=== PATIENT | male | born 1950 | race Caucasian/White ===

== ENCOUNTER 2023-04-15 17:40 | Inpatient (IN) | payer MEDICARE ==
[~2023-04-15] VITALS: Ht 170.2 cm; Wt 49.9 kg
--- NOTE | 2023-04-15 18:19 | NUR ---
PT IDS IN ROOM #1B. DR OLIVAREZ EVALUATED THE PT.
[2023-04-15] MEDS ORDERED: ONDANSETRON 4 MG/2 ML VIAL IV ONE (19:00)
[2023-04-15] MEDS ORDERED: HYDROMORPHONE 1 MG/1 ML DISP.SYRIN IV ONE (19:00)
[2023-04-15 19:22] LABS: HEMATOCRIT 31.8 % (36.7-47.1); MEAN CORPUSCULAR HEMOGLOBIN 28.9 uug (23.8-33.4); MEAN CORPUSCULAR VOLUME 89.5 fL (73.0-96.2); PLATELET COUNT (AUTO) 298 K/uL (152-348)
--- NOTE | 2023-04-15 19:30 | NUR ---
While performing perineal care, noted patient had nonblanchable erythema to sacrum, blister to right ankle and a scabb to right elbow.
[2023-04-15 19:35] LABS: ALANINE AMINOTRANSFERASE 11 U/L (16-63); ALKALINE PHOSPHATASE 60 U/L (50-136); ASPARTATE AMINOTRANSFERASE 7 U/L (15-37); BILIRUBIN,DIRECT 0.1 mg/dL (0.0-0.2); BILIRUBIN,TOTAL 0.4 mg/dL (0.2-1.0); CARBON DIOXIDE 24 mmol/L (21-32); CHLORIDE 94 mmol/L (98-107); CREATININE 1.6 mg/dL (0.6-1.3); POTASSIUM 4.2 mmol/L (3.5-5.1); TOTAL PROTEIN, SERUM 7.5 g/dL (6.4-8.2); UREA NITROGEN, BLOOD 31 mg/dL (7-18)
[2023-04-15 19:37] LABS: GLUCOSE 737 mg/dL (74-106)
[2023-04-15] MEDS ORDERED: IV NS 1000 ML 1,000 ML IV ONE ×2 (19:45)
[2023-04-15] MEDS ORDERED: ONDANSETRON 4 MG/2 ML VIAL ONE (21:02)
[2023-04-15] MEDS ORDERED: HYDROMORPHONE 1 MG/1 ML DISP.SYRIN ONE (21:03)
--- NOTE | 2023-04-15 21:16 | NUR ---
Called Dr. Preston for ortho panel call. Waiting for call back.
[2023-04-15 21:26] LABS: *BILIRUBIN,URIN NEGATIVE (NEGATIVE); *BLOOD, URINE NEGATIVE (NEGATIVE); *CLARITY,URINE CLEAR (CLEAR); *COLOR,URINE YELLOW (YELLOW); *KETONES,URINE NEGATIVE (NEGATIVE); *UROBILINOGEN,URINE 0.2 E.U./dl (NORMAL); LEUKOCYTE ESTERASE ,URINE NEGATIVE (NEGATIVE); NITRITE, URINE NEGATIVE (NEGATIVE); PH,URINE 5.5 (5.0-8.0)
[2023-04-15 21:34] LABS: RBC,URINE 0-3 /HPF (0-3); UGLUCOSE 2+ (NEGATIVE); WBC,URINE 0-3 /HPF (0-3)
[2023-04-15] MEDS ORDERED: ONDANSETRON 4 MG/2 ML VIAL IV PRN (23:30)
[2023-04-15] MEDS ORDERED: INSULIN REGULAR, HUMAN 300 UNIT/3 ML VIAL SQ PRN (23:30)
[2023-04-15] MEDS ORDERED: DEXTROSE 50% 50 ML DISP.SYRIN IV PRN (23:30)
[2023-04-15] MEDS ORDERED: MORPHINE SULFATE 2 MG/1 ML DISP.SYRIN IV PRN (23:30)
[2023-04-15] MEDS: BLOOD SUGAR DIAGNOSTIC 1 EACH STRIP VI SCH (23:40)
[2023-04-15] MEDS ORDERED: INSULIN LISPRO 300 UNIT/3 ML VIAL SQ ONE (23:54)
[2023-04-16] VITALS (8 sets, daily range): BP systolic 113–150; BP diastolic 60–74
[2023-04-16] MEDS: BLOOD SUGAR DIAGNOSTIC 1 EACH STRIP VI SCH ×5 (00:15→20:49)
--- NOTE | 2023-04-16 00:21 | NUR ---
10units of Hummulin R given per slidding scale for finger stick accucheck of 373
--- NOTE | 2023-04-16 01:30 | NUR ---
Patient resting comfortably in bed, eyes closed, no signs of distress noted.
[2023-04-16] MEDS ORDERED: MORPHINE SULFATE 2 MG/1 ML DISP.SYRIN IV PRN (06:07)
[2023-04-16 07:38] LABS: HEMATOCRIT 27.6 % (36.7-47.1); MEAN CORPUSCULAR HEMOGLOBIN 29.6 uug (23.8-33.4); PLATELET COUNT (AUTO) 265 K/uL (152-348)
--- NOTE | 2023-04-16 08:00 | NUR ---
BEDSIDE REPORT RECEIVED FROM ELISE. WITH HER ASSISTANCE PT CLOTHES REMOVED BY ANDREA RN FOR SKIN ASSESSMENT PT FOUNF TO HAVE REDDED BUTTUCK BUT BLANACHABLE AND BILATERAL HEEL CALLUS RED BUT BLANCABLE PT S/P FALL WITH RT HIP FRACTUTE. CARDIO AT BEDSIDE INFORMING THE PT OF POSSIBLE SURGERY. PT STSTES HIS LEFT EYE WITH INFECTION. EYE NOT RED PUPILS REACTIVE PT ASKED FOR THE EYE TO BE COVERED. WILL ASSESS
--- NOTE | 2023-04-16 08:07 | NUR ---
Report given to Keely OCONNOR
[2023-04-16 08:14] LABS: THYROID STIMULATING HORMONE 0.797 mIU/mL (0.358-3.740)
[2023-04-16 08:37] LABS: ALANINE AMINOTRANSFERASE 10 U/L (16-63); ALKALINE PHOSPHATASE 49 U/L (50-136); ASPARTATE AMINOTRANSFERASE < 5 U/L (15-37); BILIRUBIN,TOTAL 0.3 mg/dL (0.2-1.0); CARBON DIOXIDE 29 mmol/L (21-32); CHLORIDE 104 mmol/L (98-107); CREATININE 0.9 mg/dL (0.6-1.3); GLUCOSE 138 mg/dL (74-106); PHOSPHOROUS 3.7 mg/dL (2.5-4.9); POTASSIUM 3.8 mmol/L (3.5-5.1); TOTAL PROTEIN, SERUM 6.5 g/dL (6.4-8.2); UREA NITROGEN, BLOOD 23 mg/dL (7-18)
--- NOTE | 2023-04-16 08:49 | NUR ---
Nursing SBAR given to agricultural real estate agent Portia. All questions answered. Patient moved from ER room 1B to ER room 2B per ER unemployment insurance hearing officer Grace.
--- NOTE | 2023-04-16 09:00 | NUR ---
PIN DRAFTING MACHINE OPERATOR AT THR BEDSIDE MD INFORMED OF PTS TROPIN ALERT OF 118. AWAITING MD FOR FURTHER IMPLEMENTATIONS
--- NOTE | 2023-04-16 09:01 | NUR ---
Patient was help to hospital gown with primary RN Mary. Dr Mendoza at bedside.
[2023-04-16 09:16] LABS: MAGNESIUM 1.6 mg/dL (1.8-2.4)
[2023-04-16 10:06] LABS: CHOLESTEROL 159 mg/dL (<200); HDL CHOLESTEROL 46 mg/dL (40-60); TRIGLYCERIDES 49 MG/DL (30-150)
[2023-04-16] MEDS ORDERED: PANTOPRAZOLE SODIUM 40 MG VIAL ONE (10:35)
[2023-04-16] MEDS: PANTOPRAZOLE SODIUM 40 MG VIAL IV SCH (10:36)
--- NOTE | 2023-04-16 10:48 | NUR ---
DR THOMPSON AT BEDSIDE EXPLAINING SURGERY PROCEDURE TO THE PT . PT SCEDULED FOR TOMORROW AT ONE MD GAVE ORDER FOR THE PT TO EAT DIET PLACED. CONSENT FOR BIPOLAR REPLACEMENT RIGHT HIP SIGNED AND BLOOD CONSENT SIGNED
--- NOTE | 2023-04-16 14:30 | NUR ---
report called to the rn of 306 verbal understanding noted
--- NOTE | 2023-04-16 15:50 | NUR ---
ADMITTED FROM [facility] ER S/P FALL 2 WEEKS AGO WITH ADMITTING DX OF RIGHT HIP FX, HYPERGLYCEMIA, AWAKE ALERT AND ANSWER QUESTIONS APPROPRIATELY, NO SIGNS OF DISTRESS OR ACUTE PAIN. ROUTINE ADMISSION ASSESSMENT INITIATED LATEST BS 311 WITH SS MILD. STARTED ON NS IVF AT 80 MLS/HR, MG IV FOR LOW MAGNESIUM 1.6
[2023-04-16] MEDS ORDERED: DEXTROSE 50% 50 ML DISP.SYRIN IV PRN (17:00)
[2023-04-16] MEDS: IV NS 1000 ML 1,000 ML IV PRN (17:16)
[2023-04-16] MEDS: INSULIN REGULAR, HUMAN 300 UNIT/3 ML VIAL SQ PRN ×2 (17:22→20:52)
[2023-04-16] MEDS: MAGNESIUM SULFATE/D5W 100 ML IV SCH ×2 (17:23→18:03)
--- NOTE | 2023-04-16 17:39 | NUR ---
PATIENT SCHEDULED FOR SURGERY IN AM
[2023-04-16] MEDS ORDERED: MAGNESIUM SULFATE/D5W 100 ML IV SCH (20:30)
[2023-04-16] MEDS ORDERED: NICOTINE POLACRILEX 4 MG GUM-PK OF TEN BC PRN (23:00)
[2023-04-17 00:07] VITALS: BP 138/64
[2023-04-17] MEDS ORDERED: DEXTROSE 50% 50 ML DISP.SYRIN IV PRN ×2 (00:15→18:30)
[2023-04-17 05:00] VITALS: BP 147/65
[2023-04-17] MEDS: BLOOD SUGAR DIAGNOSTIC 1 EACH STRIP VI SCH ×4 (05:32→21:13)
[2023-04-17] MEDS ORDERED: NICOTINE POLACRILEX 4 MG GUM-PK OF TEN BC PRN (06:00)
--- NOTE | 2023-04-17 06:41 | NUR ---
END OF SHIFT REPORT Patient rested well in between care; episode of 11 beats NSVT. referred to EYEGLASS FRAME TRUER EMELY, ordered Mg IV and administered; pain management with morphine this AM; kept NPO fr MN; continue to monitor; continue plan of care.
[2023-04-17 07:01] LABS: HEMATOCRIT 28.3 % (36.7-47.1); MEAN CORPUSCULAR HEMOGLOBIN 29.3 uug (23.8-33.4); MEAN CORPUSCULAR VOLUME 85.4 fL (73.0-96.2); PLATELET COUNT (AUTO) 287 K/uL (152-348)
[2023-04-17 07:26] LABS: CARBON DIOXIDE 28 mmol/L (21-32); CHLORIDE 102 mmol/L (98-107); CREATININE 0.8 mg/dL (0.6-1.3); GLUCOSE 229 mg/dL (74-106); MAGNESIUM 2.1 mg/dL (1.8-2.4); PHOSPHOROUS 3.2 mg/dL (2.5-4.9); POTASSIUM 4.2 mmol/L (3.5-5.1); UREA NITROGEN, BLOOD 20 mg/dL (7-18)
[2023-04-17] MEDS: IV NS 1000 ML 1,000 ML IV PRN (07:52)
--- NOTE | 2023-04-17 08:00 | NUR ---
AWAKE ALERT AND ORIENTED X3 PLEASANT AND COOPERATIVE. DISCUSSED PLAN OF CARE, PATIENT IS VERY AWARE OF DX AND SURGERY SCHEDULE AT 1PM. NOTED C/O BEARABLE PAIN 2/10 RIGHT LEG CONTINUE PAIN MGT ORDERED.
[2023-04-17] MEDS: PANTOPRAZOLE SODIUM 40 MG VIAL IV SCH (08:21)
[2023-04-17] MEDS: METOPROLOL TARTRATE 25 MG TABLET PO SCH ×2 (08:23→21:05)
--- NOTE | 2023-04-17 11:11 | NUR ---
TEXT DR. PARISH FOR MRI APPROVAL.
--- NOTE | 2023-04-17 11:37 | NUR ---
WOUND CARE CONSULT: PT PRESENTS WITH SACRAL DEEP TISSUE IN EVOLUTION AND LEFT HEEL LARGE RAISED BLISTER, PRESENT ON ADMISSION. DIFFICULT ASSESSMENT DUE TO PT DISCOMFORT. DR ROSARIO AND DR DIALLO CALLED FOR SURGICAL AND DPM CONSULTS. DISCUSSED SKIN PROTECTION WITH NURSING STAFF. JULITA Kate IN AGREEMENT WITH PLAN OF CARE. Addendum: 04/17/23 at 1138 by DANIEL STEWART RN Amended: Links added.
[2023-04-17] MEDS: INSULIN REGULAR, HUMAN 300 UNIT/3 ML VIAL SQ PRN ×3 (11:51→21:19)
[2023-04-17] MEDS ORDERED: VANCOMYCIN 1000 MG VIAL ONE (11:51)
[2023-04-17 11:52] VITALS: BP 136/64
--- NOTE | 2023-04-17 12:35 | NUR ---
TO OR VIA BED ACCOMPANIED BY OR STAFF
[2023-04-17] MEDS ORDERED: FENTANYL CITRATE 100 MCG/2 ML AMPUL ONE ×2 (12:41)
[2023-04-17] MEDS ORDERED: MIDAZOLAM HCL 2 MG/2 ML VIAL ONE (12:41)
[2023-04-17] MEDS ORDERED: BUPIVACAINE PF 0.5% 30 ML VIAL ONE (13:41)
[2023-04-17] MEDS ORDERED: CEFAZOLIN 1 G VIAL ONE (14:02)
[2023-04-17] MEDS ORDERED: SUCCINYLCHOLINE CHLORIDE 200 MG/10 ML VIAL ONE (14:02)
[2023-04-17] MEDS ORDERED: PROPOFOL 200 MG/20 ML BOTTLE ONE (14:02)
[2023-04-17] MEDS ORDERED: TRAM50TA2 PO (14:28)
[2023-04-17] MEDS ORDERED: TRAZ-182 PO (14:28)
[2023-04-17] MEDS ORDERED: INSU3INS6 SQ (14:28)
[2023-04-17] MEDS ORDERED: LORA0.5T48 PO (14:28)
[2023-04-17] MEDS ORDERED: INSU100V28 SQ (14:28)
[2023-04-17] MEDS ORDERED: PANT40TA49 PO (14:28)
[2023-04-17] MEDS ORDERED: GABA300C PO (14:28)
[2023-04-17] MEDS ORDERED: CARB1TAB21 PO (14:28)
[2023-04-17] MEDS ORDERED: METF-440 PO (14:28)
[2023-04-17] MEDS ORDERED: LOPE2CAP40 PO (14:28)
[2023-04-17] MEDS ORDERED: HYDROMORPHONE 1 MG/1 ML DISP.SYRIN ONE (14:56)
--- NOTE | 2023-04-17 15:28 | NUR ---
BACK FROM OR AWAKE ALERT AND VERBALLY RESPONSIVE WITH RIGHT HIP INCISION ON A DERMABOND DRESSING, A-PILLOW IN PLACE. BOTH HEELS ON A PILLOW. GOOD PEDAL PULSES, TOES WARM TO TOUCH. CONNECTED ON HEART MONITOR SR ON THE 80'S. CLOSELY MONITORED
[2023-04-17 15:30] VITALS: BP 152/79
--- NOTE | 2023-04-17 16:00 | NUR ---
PER CONCETTA FROM MRI HE WILL CALL IN AM REGARDING SCHEDULE STATUS
[2023-04-17] MEDS: POTASSIUM CHLORIDE 20 MEQ in IV D5 1/2 NS 1000 ML 1,000 ML IV PRN (17:08)
[2023-04-17] MEDS: GABAPENTIN 300 MG CAPSULE PO SCH (17:25)
[2023-04-17] MEDS: MORPHINE SULFATE 4 MG/1 ML DISP.SYRIN IV PRN (17:25)
[2023-04-17] MEDS: CARBIDOPA/LEVODOPA 25-100MG TABLET PO SCH (17:25)
[2023-04-17] MEDS: TRAZODONE 50 MG TABLET PO SCH (17:47)
--- NOTE | 2023-04-17 18:49 | NUR ---
PER DR THOMPSON OK FOR PATIENT TO GO FOR MRI IN AM.
[2023-04-17 20:00] VITALS: BP 135/78
[2023-04-17] MEDS: CEFAZOLIN 1 G in IV DEXTROSE 5% 50 ML IV SCH (21:05)
[2023-04-17] MEDS: INSULIN GLARGINE,HUM 300 UNITS/3 ML CARTRIDGE SQ SCH (21:17)
[2023-04-18] VITALS: BP 116/70
[2023-04-18] MEDS: CEFAZOLIN 1 G in IV DEXTROSE 5% 50 ML IV SCH (04:43)
[2023-04-18 04:45] VITALS: BP 110/54
[2023-04-18 05:55] LABS: MEAN CORPUSCULAR HEMOGLOBIN 29.8 uug (23.8-33.4); MEAN CORPUSCULAR VOLUME 85.6 fL (73.0-96.2); PLATELET COUNT (AUTO) 256 K/uL (152-348)
[2023-04-18] MEDS: BLOOD SUGAR DIAGNOSTIC 1 EACH STRIP VI SCH ×4 (06:40→20:36)
[2023-04-18 07:16] LABS: CARBON DIOXIDE 26 mmol/L (21-32); CHLORIDE 102 mmol/L (98-107); GLUCOSE 260 mg/dL (74-106); POTASSIUM 4.4 mmol/L (3.5-5.1); UREA NITROGEN, BLOOD 24 mg/dL (7-18)
--- NOTE | 2023-04-18 07:16 | NUR ---
report given to bassam bhardwaj
[2023-04-18] MEDS: POTASSIUM CHLORIDE 20 MEQ in IV D5 1/2 NS 1000 ML 1,000 ML IV PRN (07:30)
[2023-04-18 07:42] LABS: MAGNESIUM 1.8 mg/dL (1.8-2.4)
[2023-04-18] MEDS: CARBIDOPA/LEVODOPA 25-100MG TABLET PO SCH ×2 (08:19→16:31)
[2023-04-18] MEDS: GABAPENTIN 300 MG CAPSULE PO SCH ×3 (08:19→16:31)
[2023-04-18] MEDS: METOPROLOL TARTRATE 25 MG TABLET PO SCH ×2 (08:20→20:36)
[2023-04-18] MEDS: PANTOPRAZOLE SODIUM 40 MG VIAL IV SCH (08:20)
[2023-04-18] MEDS: INSULIN REGULAR, HUMAN 300 UNIT/3 ML VIAL SQ PRN ×4 (08:24→20:37)
[2023-04-18 12:00] VITALS: BP 136/68
--- NOTE | 2023-04-18 12:30 | NUR ---
Pt. left the [facility] for MRI. Pt. noted to be stable when he was leaving for MRI.
--- NOTE | 2023-04-18 13:41 | NUR ---
Pt. came back from [facility] after the MRI.
[2023-04-18] MEDS: ENOXAPARIN SODIUM 40 MG/0.4 ML DISP.SYRIN SQ SCH (13:53)
[2023-04-18 15:44] VITALS: BP 142/70
[2023-04-18] MEDS: TRAZODONE 50 MG TABLET PO SCH (17:16)
--- NOTE | 2023-04-18 17:52 | NUR ---
Pt. has been stable during the shift. Compliance with the care given. All need attended and met. No c/o pain. Pt. was kept clean and dry during the shift. Turned and repositioned every 2 hours and as needed. Will keep monitoring the patient.
[2023-04-18 20:16] VITALS: BP 129/74
[2023-04-18] MEDS: INSULIN GLARGINE,HUM 300 UNITS/3 ML CARTRIDGE SQ SCH (20:36)
[2023-04-18] MEDS: ACETAMINOPHEN 650 MG SUPP.RECT RC PRN (20:43)
[2023-04-19] MEDS: HYDROCODONE/APAP 10-325 MG TABLET PO PRN ×2 (04:04→20:52)
[2023-04-19 04:05] VITALS: BP 138/66
[2023-04-19] MEDS: PANTOPRAZOLE SODIUM 40 MG TABLET.DR PO SCH (06:04)
[2023-04-19 06:26] LABS: HEMATOCRIT 25.1 % (36.7-47.1); MEAN CORPUSCULAR HEMOGLOBIN 29.1 uug (23.8-33.4); PLATELET COUNT (AUTO) 261 K/uL (152-348)
[2023-04-19] MEDS: BLOOD SUGAR DIAGNOSTIC 1 EACH STRIP VI SCH ×4 (06:29→20:50)
[2023-04-19 06:43] LABS: MAGNESIUM 1.7 mg/dL (1.8-2.4); PHOSPHOROUS 2.8 mg/dL (2.5-4.9); POTASSIUM 4.5 mmol/L (3.5-5.1)
[2023-04-19] MEDS: METOPROLOL TARTRATE 25 MG TABLET PO SCH ×2 (08:19→20:50)
[2023-04-19] MEDS: GABAPENTIN 300 MG CAPSULE PO SCH ×3 (08:19→17:02)
[2023-04-19] MEDS: ENOXAPARIN SODIUM 40 MG/0.4 ML DISP.SYRIN SQ SCH (08:21)
[2023-04-19] MEDS: INSULIN REGULAR, HUMAN 300 UNIT/3 ML VIAL SQ PRN ×4 (08:28→20:45)
[2023-04-19] MEDS ORDERED: MAGNESIUM OXIDE 400 MG TABLET PO ONE (11:30)
--- NOTE | 2023-04-19 14:17 | NUR ---
Kellee requested to have a picture from the sacral area. Picture taken and sent to her.
[2023-04-19] MEDS: TRAZODONE 50 MG TABLET PO SCH (17:02)
--- NOTE | 2023-04-19 17:34 | NUR ---
Pt. has been stable during the shift. Compliance with the care given. All need attended and met. No change in condition noted. No c/o pain. Kept the pt. clean and dry. Turned and repositioned every 2 hours and as needed. Will keep monitoring the patient.
[2023-04-19 20:14] VITALS: BP 134/65
[2023-04-19] MEDS: INSULIN GLARGINE,HUM 300 UNITS/3 ML CARTRIDGE SQ SCH (20:47)
[2023-04-20 04:15] VITALS: BP 146/75
[2023-04-20] MEDS: BLOOD SUGAR DIAGNOSTIC 1 EACH STRIP VI SCH ×4 (05:56→20:08)
[2023-04-20 06:04] LABS: HEMATOCRIT 25.8 % (36.7-47.1); MEAN CORPUSCULAR VOLUME 86.4 fL (73.0-96.2); PLATELET COUNT (AUTO) 327 K/uL (152-348)
[2023-04-20] MEDS: INSULIN REGULAR, HUMAN 300 UNIT/3 ML VIAL SQ PRN ×4 (06:13→20:10)
[2023-04-20 06:25] LABS: MAGNESIUM 1.9 mg/dL (1.8-2.4); PHOSPHOROUS 2.8 mg/dL (2.5-4.9); POTASSIUM 4.5 mmol/L (3.5-5.1)
[2023-04-20] MEDS: PANTOPRAZOLE SODIUM 40 MG TABLET.DR PO SCH (06:34)
[2023-04-20] MEDS: METOPROLOL TARTRATE 25 MG TABLET PO SCH ×2 (08:50→20:34)
[2023-04-20] MEDS: GABAPENTIN 300 MG CAPSULE PO SCH ×3 (08:50→16:59)
[2023-04-20] MEDS: ENOXAPARIN SODIUM 40 MG/0.4 ML DISP.SYRIN SQ SCH (08:51)
[2023-04-20] MEDS: HYDROCODONE/APAP 10-325 MG TABLET PO PRN ×2 (09:22→22:48)
[2023-04-20 11:32] VITALS: BP 108/52
[2023-04-20] MEDS: ACETAMINOPHEN 650 MG SUPP.RECT RC PRN ×2 (11:55→20:31)
--- NOTE | 2023-04-20 13:35 | NUR ---
0730-Recd patient in bed, awake, alert and oriented; verbally communicative, denies pain. No resp. distress noted; annad catheter in place, draining to gravity, yellow urine. Patient denies bladder discomfort. RT hip surgical site with clean DD in place, no drainage/bleeding observed. No s/s of hypo/hyperglycemia noted. Safety measures in place, call light at reach. 46280-Arfhocdav medication administered with no ASE noted, oral fluids taken well. Addendum: 04/20/23 at 1926 by WES GAGE RN Recd patient in bed, awake, alert and oriented; verbally communicative, denies pain. No resp. distress noted; anand catheter in place, draining to gravity, yellow urine. Patient denies bladder discomfort. RT hip surgical site with clean DD in place, no drainage/bleeding observed. No s/s of hypo/hyperglycemia noted. Safety measures in place, call light at reach. 0900-Scheduled medication administered with no ASE noted, oral fluids taken well. Patient requires of total assist with care. No SUSAN noted through out the shift. Care provided at routine intervals and as needed. Repositioned Q2HRs to promote comfort and facilitate pressure relief. All needs anticipated promptly and met in a timely manner.
[2023-04-20 16:00] VITALS: BP 109/67
[2023-04-20] MEDS: TRAZODONE 50 MG TABLET PO SCH (18:16)
[2023-04-20 20:00] VITALS: BP 130/66
[2023-04-20] MEDS: INSULIN GLARGINE,HUM 300 UNITS/3 ML CARTRIDGE SQ SCH (20:09)
--- NOTE | 2023-04-20 20:21 | NUR ---
RECTAL TEMPERATURE TAKEN AND RECEIVED 101.7. CALLED OUT TO MD FOR FURTHER ORDERS.
[2023-04-20 20:48] LABS: *BILIRUBIN,URIN NEGATIVE (NEGATIVE); *BLOOD, URINE 2+ (NEGATIVE); *CLARITY,URINE CLOUDY (CLEAR); *COLOR,URINE LIGHT YELLOW (YELLOW); *KETONES,URINE NEGATIVE (NEGATIVE); *UROBILINOGEN,URINE 0.2 E.U./dl (NORMAL); LEUKOCYTE ESTERASE ,URINE TRACE (NEGATIVE); NITRITE, URINE NEGATIVE (NEGATIVE); PH,URINE 5.5 (5.0-8.0); UGLUCOSE 2+ (NEGATIVE)
--- NOTE | 2023-04-20 21:30 | NUR ---
TEMPERATURE TAKEN, TRENDING DOWN 99.7.
[2023-04-20 22:55] LABS: BACTERIA,URINE MODERATE /HPF (NONE SEEN); SQUAMOUS EPITHELIAL CELL,UR NONE SEEN /HPF (NONE SEEN)
[2023-04-20 22:57] LABS: YEAST,URINE MANY /HPF (NONE SEEN)
[2023-04-21 04:00] VITALS: BP 123/98
[2023-04-21] MEDS: PANTOPRAZOLE SODIUM 40 MG TABLET.DR PO SCH (06:13)
[2023-04-21] MEDS: BLOOD SUGAR DIAGNOSTIC 1 EACH STRIP VI SCH ×4 (06:32→20:43)
[2023-04-21 06:38] LABS: HEMATOCRIT 23.8 % (36.7-47.1); MEAN CORPUSCULAR HEMOGLOBIN 28.7 uug (23.8-33.4); MEAN CORPUSCULAR VOLUME 86.4 fL (73.0-96.2); PLATELET COUNT (AUTO) 371 K/uL (152-348)
[2023-04-21 07:30] LABS: CREATININE 1.1 mg/dL (0.6-1.3); MAGNESIUM 1.9 mg/dL (1.8-2.4); PHOSPHOROUS 3.1 mg/dL (2.5-4.9); POTASSIUM 4.3 mmol/L (3.5-5.1)
--- NOTE | 2023-04-21 08:00 | NUR ---
Discussed plan of care with patient and implemented pain management ( NORCO), frequent turning q 2hrs and float bilateral heels. Pt agreeable with plan of care. Pt awake alert and oriented x 4. Pt denies any c/o pain. Call light is within reach.
[2023-04-21] MEDS: ENOXAPARIN SODIUM 40 MG/0.4 ML DISP.SYRIN SQ SCH (08:46)
[2023-04-21] MEDS: GABAPENTIN 300 MG CAPSULE PO SCH ×3 (08:46→17:05)
[2023-04-21] MEDS: METOPROLOL TARTRATE 25 MG TABLET PO SCH ×2 (08:48→20:18)
[2023-04-21] MEDS: INSULIN REGULAR, HUMAN 300 UNIT/3 ML VIAL SQ PRN ×4 (08:49→20:45)
[2023-04-21] MEDS: CEFTRIAXONE 1 G in IV DEXTROSE 5% 50 ML IV SCH (10:40)
[2023-04-21 11:49] VITALS: BP 111/66
[2023-04-21] MEDS: HYDROCODONE/APAP 10-325 MG TABLET PO PRN ×2 (12:02→20:46)
[2023-04-21 16:03] VITALS: BP 95/48
[2023-04-21] MEDS: GLUCERNA SHAKE 237 ML CAN PO SCH (17:05)
[2023-04-21] MEDS: TRAZODONE 50 MG TABLET PO SCH (17:05)
--- NOTE | 2023-04-21 18:00 | NUR ---
Pt's pain managed with NOrco. Pt had good appetite for dinner. No sob noted. Call light is within reach.
[2023-04-21] MEDS: INSULIN GLARGINE,HUM 300 UNITS/3 ML CARTRIDGE SQ SCH (20:45)
[2023-04-22 04:00] VITALS: BP 110/49
[2023-04-22] MEDS: HYDROCODONE/APAP 10-325 MG TABLET PO PRN ×2 (04:23→10:21)
[2023-04-22] MEDS: PANTOPRAZOLE SODIUM 40 MG TABLET.DR PO SCH (06:07)
[2023-04-22] MEDS: BLOOD SUGAR DIAGNOSTIC 1 EACH STRIP VI SCH ×4 (06:20→21:30)
[2023-04-22 07:02] LABS: HEMATOCRIT 22.9 % (36.7-47.1); MEAN CORPUSCULAR HEMOGLOBIN 29.3 uug (23.8-33.4); MEAN CORPUSCULAR VOLUME 87.1 fL (73.0-96.2); PLATELET COUNT (AUTO) 378 K/uL (152-348)
[2023-04-22 07:39] LABS: CARBON DIOXIDE 30 mmol/L (21-32); CHLORIDE 103 mmol/L (98-107); GLUCOSE 159 mg/dL (74-106); MAGNESIUM 1.8 mg/dL (1.8-2.4); PHOSPHOROUS 3.5 mg/dL (2.5-4.9); POTASSIUM 4.5 mmol/L (3.5-5.1); UREA NITROGEN, BLOOD 25 mg/dL (7-18)
[2023-04-22] MEDS: GABAPENTIN 300 MG CAPSULE PO SCH ×3 (08:23→17:53)
[2023-04-22] MEDS: ENOXAPARIN SODIUM 40 MG/0.4 ML DISP.SYRIN SQ SCH (08:24)
[2023-04-22] MEDS: METOPROLOL TARTRATE 25 MG TABLET PO SCH ×2 (08:29→21:17)
[2023-04-22] MEDS: GLUCERNA SHAKE 237 ML CAN PO SCH ×2 (08:29→16:43)
--- NOTE | 2023-04-22 10:00 | NUR ---
Dressing change on sacrum as ordered. Noted foul smell on wound with sloughing noted. Continue to reposition pt and turn q 2 hrs. AROLDO Heel floated. Right Heel dressing changed as ordered. Redness noted. left heel no redness noted.
[2023-04-22] MEDS: CEFTRIAXONE 1 G in IV DEXTROSE 5% 50 ML IV SCH (10:14)
[2023-04-22 11:33] VITALS: BP 119/59
[2023-04-22] MEDS: INSULIN REGULAR, HUMAN 300 UNIT/3 ML VIAL SQ PRN ×2 (12:22→17:57)
[2023-04-22] MEDS: TRAZODONE 50 MG TABLET PO SCH (17:53)
--- NOTE | 2023-04-22 18:00 | NUR ---
Pt is in no acute distress. Pt tolerated physical therapy today - pain management effective prior to therapy sessions. Call light is within reach.
[2023-04-22 20:00] VITALS: BP 133/62
[2023-04-22] MEDS: INSULIN GLARGINE,HUM 300 UNITS/3 ML CARTRIDGE SQ SCH (21:36)
[2023-04-23 04:00] VITALS: BP 111/53
[2023-04-23] MEDS: ACETAMINOPHEN 650 MG SUPP.RECT RC PRN (04:36)
[2023-04-23] MEDS: MORPHINE SULFATE 4 MG/1 ML DISP.SYRIN IV PRN (04:45)
[2023-04-23 06:25] LABS: HEMATOCRIT 21.5 % (36.7-47.1); MEAN CORPUSCULAR HEMOGLOBIN 28.6 uug (23.8-33.4); MEAN CORPUSCULAR VOLUME 86.5 fL (73.0-96.2); PLATELET COUNT (AUTO) 409 K/uL (152-348)
--- NOTE | 2023-04-23 06:30 | NUR ---
BS 46 FOLLOWING PROTOCOL
[2023-04-23 06:57] LABS: CARBON DIOXIDE 30 mmol/L (21-32); CHLORIDE 103 mmol/L (98-107); CREATININE 0.9 mg/dL (0.6-1.3); MAGNESIUM 1.7 mg/dL (1.8-2.4); PHOSPHOROUS 3.8 mg/dL (2.5-4.9); UREA NITROGEN, BLOOD 24 mg/dL (7-18)
--- NOTE | 2023-04-23 07:30 | NUR ---
REPORT GIVEN TO ELVIN ENNIS
[2023-04-23] MEDS: PANTOPRAZOLE SODIUM 40 MG TABLET.DR PO SCH (07:38)
[2023-04-23] MEDS: BLOOD SUGAR DIAGNOSTIC 1 EACH STRIP VI SCH ×4 (07:43→21:00)
[2023-04-23 07:44] LABS: GLUCOSE 46 mg/dL (74-106)
--- NOTE | 2023-04-23 07:59 | NUR ---
Received a call from lab and reported critical lab value Glucose 46. Notified Steven Gardiner (COUNSELING DIRECTOR). Noted and no new order received. Will keep monitoring the patient.
[2023-04-23] MEDS: GABAPENTIN 300 MG CAPSULE PO SCH ×3 (08:38→16:29)
[2023-04-23] MEDS: METOPROLOL TARTRATE 25 MG TABLET PO SCH ×2 (08:39→22:04)
[2023-04-23] MEDS: GLUCERNA SHAKE 237 ML CAN PO SCH ×2 (08:39→16:29)
[2023-04-23] MEDS: CEFTRIAXONE 1 G in IV DEXTROSE 5% 50 ML IV SCH (09:08)
[2023-04-23] MEDS ORDERED: MAGNESIUM OXIDE 400 MG TABLET PO ONE (10:00)
[2023-04-23 11:45] VITALS: BP 113/58
[2023-04-23] MEDS: INSULIN REGULAR, HUMAN 300 UNIT/3 ML VIAL SQ PRN ×2 (12:21→16:53)
[2023-04-23] MEDS ORDERED: VANCOMYCIN IV 1,000 MG in IV DEXTROSE 5% 250 ML IV ONE (14:00)
[2023-04-23 14:13] LABS: HEMATOCRIT 23.4 % (36.7-47.1)
[2023-04-23 15:42] VITALS: BP 133/64
[2023-04-23] MEDS: CEFEPIME HCL 1 G in IV DEXTROSE 5% 50 ML IV SCH ×2 (16:27→22:03)
[2023-04-23] MEDS: TRAZODONE 50 MG TABLET PO SCH (17:10)
--- NOTE | 2023-04-23 17:44 | NUR ---
Pt. has been stable during the shift. Skin treatment done. Kept the pt. clean and dry. No c/o pain. Call light within reach. No hypo/hyperglycemia s/s noted. All need attended and met. Turned and repositioned as every 2 hours and as needed. Will keep monitoring the patient.
[2023-04-23 20:00] VITALS: BP 134/62
[2023-04-23 21:24] LABS: HEMATOCRIT 21.5 % (36.7-47.1)
[2023-04-23] MEDS: INSULIN GLARGINE,HUM 300 UNITS/3 ML CARTRIDGE SQ SCH (22:03)
[2023-04-23] MEDS: HYDROCODONE/APAP 10-325 MG TABLET PO PRN (23:01)
[2023-04-24] MEDS ORDERED: VANCOMYCIN IV 500 MG in IV DEXTROSE 5% 100 ML IV SCH (02:00)
[2023-04-24 04:00] VITALS: BP 131/67
[2023-04-24] MEDS: CEFEPIME HCL 1 G in IV DEXTROSE 5% 50 ML IV SCH ×3 (05:12→21:35)
[2023-04-24] MEDS: PANTOPRAZOLE SODIUM 40 MG TABLET.DR PO SCH (06:10)
[2023-04-24 06:34] LABS: HEMATOCRIT 21.3 % (36.7-47.1); MEAN CORPUSCULAR HEMOGLOBIN 28.9 uug (23.8-33.4); MEAN CORPUSCULAR VOLUME 86.1 fL (73.0-96.2); PLATELET COUNT (AUTO) 411 K/uL (152-348)
[2023-04-24] MEDS: BLOOD SUGAR DIAGNOSTIC 1 EACH STRIP VI SCH ×4 (06:44→21:17)
[2023-04-24 06:51] LABS: CARBON DIOXIDE 31 mmol/L (21-32); CHLORIDE 100 mmol/L (98-107); CREATININE 1.1 mg/dL (0.6-1.3); MAGNESIUM 1.9 mg/dL (1.8-2.4); PHOSPHOROUS 3.3 mg/dL (2.5-4.9); POTASSIUM 4.2 mmol/L (3.5-5.1); UREA NITROGEN, BLOOD 26 mg/dL (7-18)
[2023-04-24 07:12] LABS: GLUCOSE 395 mg/dL (74-106)
--- NOTE | 2023-04-24 07:30 | NUR ---
report given to bassam bennett
[2023-04-24] MEDS: INSULIN REGULAR, HUMAN 300 UNIT/3 ML VIAL SQ PRN ×4 (08:59→21:19)
[2023-04-24] MEDS: GABAPENTIN 300 MG CAPSULE PO SCH ×3 (09:13→17:23)
[2023-04-24] MEDS: METOPROLOL TARTRATE 25 MG TABLET PO SCH ×2 (09:14→20:39)
[2023-04-24] MEDS: GLUCERNA SHAKE 237 ML CAN PO SCH ×2 (09:14→17:24)
[2023-04-24 11:46] VITALS: BP 115/57
[2023-04-24] MEDS: FLUCONAZOLE 200 MG/NS 100ML IV 200 MG in PREMIXED 1 EACH IV SCH (11:59)
[2023-04-24] MEDS ORDERED: LORAZEPAM 0.5 MG TABLET PO ONE (13:00)
[2023-04-24] MEDS ORDERED: VANCOMYCIN IV 750 MG in IV DEXTROSE 5% 250 ML IV SCH ×2 (15:00→17:00)
[2023-04-24 16:30] VITALS: BP 125/63
[2023-04-24] MEDS: TRAZODONE 50 MG TABLET PO SCH (17:23)
--- NOTE | 2023-04-24 19:06 | NUR ---
shift note: pt alert and oriented. denies any pain or sob. sacral wound dsg done. reposition q2h; heel float. 0.5mg Ativan PO once was given for anxiety. adductor pillow in placed. scd pump in placed. safety measure in placed. call light with in reach. all needs attended.
--- NOTE | 2023-04-24 19:30 | NUR ---
Received patient resting in bed. In no acute distress. Garcia catheter patent and draining well. Call button within reach. Will continue plan of care, attend needs.
[2023-04-24 20:00] VITALS: BP 124/61
[2023-04-24] MEDS: ATORVASTATIN 20 MG TABLET PO SCH (20:35)
[2023-04-24] MEDS: INSULIN GLARGINE,HUM 300 UNITS/3 ML CARTRIDGE SQ SCH (21:18)
[2023-04-25 04:00] VITALS: BP 124/61
[2023-04-25] MEDS: CEFEPIME HCL 1 G in IV DEXTROSE 5% 50 ML IV SCH ×3 (05:16→21:35)
[2023-04-25] MEDS: PANTOPRAZOLE SODIUM 40 MG TABLET.DR PO SCH (06:22)
[2023-04-25 06:41] LABS: HEMATOCRIT 22.7 % (36.7-47.1); MEAN CORPUSCULAR HEMOGLOBIN 28.3 uug (23.8-33.4); MEAN CORPUSCULAR VOLUME 85.6 fL (73.0-96.2); PLATELET COUNT (AUTO) 510 K/uL (152-348)
[2023-04-25] MEDS: BLOOD SUGAR DIAGNOSTIC 1 EACH STRIP VI SCH ×4 (06:48→20:29)
[2023-04-25 06:59] LABS: CARBON DIOXIDE 30 mmol/L (21-32); CHLORIDE 101 mmol/L (98-107); CREATININE 0.9 mg/dL (0.6-1.3); GLUCOSE 249 mg/dL (74-106); MAGNESIUM 1.8 mg/dL (1.8-2.4); PHOSPHOROUS 2.8 mg/dL (2.5-4.9); POTASSIUM 4.1 mmol/L (3.5-5.1); UREA NITROGEN, BLOOD 20 mg/dL (7-18)
--- NOTE | 2023-04-25 07:00 | NUR ---
Patient alert and oriented x3, forgetful of reasoning of admittance to hospital. Pain managed throughout shift, dressing change performed, and repositioned for comfort and circulation. Needs attended to and met. Continue plan of care.
[2023-04-25 08:00] VITALS: BP 104/53
[2023-04-25] MEDS: INSULIN REGULAR, HUMAN 300 UNIT/3 ML VIAL SQ PRN ×3 (08:03→20:31)
[2023-04-25] MEDS: METOPROLOL TARTRATE 25 MG TABLET PO SCH ×2 (08:36→20:30)
[2023-04-25] MEDS: GLUCERNA SHAKE 237 ML CAN PO SCH ×2 (08:37→17:06)
[2023-04-25] MEDS: DIVALPROEX 250 MG TABLET.DR PO SCH ×2 (08:37→12:38)
[2023-04-25] MEDS: GABAPENTIN 300 MG CAPSULE PO SCH ×3 (08:37→17:06)
[2023-04-25] MEDS ORDERED: FLEET ENEMA 133 ML BOTTLE RC ONE (09:00)
--- NOTE | 2023-04-25 09:00 | NUR ---
Received patient lying in bed awake, alert and oriented. IV catheter at right upper arm. Not in distress, no SOB. Patient complaining of abdominal pain, unable to pass to stool Dr. Gardiner informed, ordered fleet enema and colace. Fleet enema not given patient able to pass stool. Assisted patient to pass stool, clean wound and changed new dressing.
[2023-04-25] MEDS: DOCUSATE SODIUM 100 MG CAPSULE PO SCH ×2 (09:50→20:30)
[2023-04-25] MEDS: FLUCONAZOLE 200 MG/NS 100ML IV 200 MG in PREMIXED 1 EACH IV SCH (10:06)
[2023-04-25 11:56] VITALS: BP 131/64
[2023-04-25] MEDS: VANCOMYCIN IV 750 MG in IV DEXTROSE 5% 250 ML IV SCH (12:39)
[2023-04-25 16:27] VITALS: BP 143/79
[2023-04-25] MEDS: TRAZODONE 50 MG TABLET PO SCH (17:06)
--- NOTE | 2023-04-25 18:00 | NUR ---
Turned patient and repositioned every 2 hours and as needed, off loading done. Medications taken and recorded. Keep comfortable and rested. Seen by physical therapist. Needs attended. Endorsed
[2023-04-25] MEDS: INSULIN GLARGINE,HUM 300 UNITS/3 ML CARTRIDGE SQ SCH (20:30)
[2023-04-25] MEDS: ATORVASTATIN 20 MG TABLET PO SCH (20:30)
[2023-04-25 20:32] VITALS: BP 142/69
[2023-04-26 04:15] VITALS: BP 109/57
[2023-04-26] MEDS: CEFEPIME HCL 1 G in IV DEXTROSE 5% 50 ML IV SCH ×3 (05:03→21:02)
[2023-04-26] MEDS: HYDROCODONE/APAP 10-325 MG TABLET PO PRN (05:31)
[2023-04-26] MEDS: PANTOPRAZOLE SODIUM 40 MG TABLET.DR PO SCH (06:25)
[2023-04-26 06:27] LABS: HEMATOCRIT 22.8 % (36.7-47.1); MEAN CORPUSCULAR HEMOGLOBIN 28.2 uug (23.8-33.4); MEAN CORPUSCULAR VOLUME 85.5 fL (73.0-96.2); PLATELET COUNT (AUTO) 565 K/uL (152-348)
[2023-04-26] MEDS: BLOOD SUGAR DIAGNOSTIC 1 EACH STRIP VI SCH ×4 (06:34→20:55)
[2023-04-26 06:47] LABS: CARBON DIOXIDE 31 mmol/L (21-32); CHLORIDE 102 mmol/L (98-107); GLUCOSE 125 mg/dL (74-106); MAGNESIUM 1.8 mg/dL (1.8-2.4); PHOSPHOROUS 3.2 mg/dL (2.5-4.9); UREA NITROGEN, BLOOD 19 mg/dL (7-18)
--- NOTE | 2023-04-26 08:00 | NUR ---
RECEIVED PATIENT IN BED AWAKE ALERT AND ORIENTED DENIES PAIN OR DISCOMFORTS SKIN IS WARM AND DRY RIGHT HIP WITH DRESSING INTACT WITH ABDUCTION PILLOW IN PLACE WITH ADEQUATE CIRCULATION CALL LIGHT AND PERSONAL BELONGINGS ARE WITHIN EASY REACH ASSISTED WITH REPOSITIONING Q2H WILL CONTINUE TO OBSERVE.
[2023-04-26] MEDS: INSULIN REGULAR, HUMAN 300 UNIT/3 ML VIAL SQ PRN ×4 (08:15→21:02)
[2023-04-26] MEDS: DIVALPROEX 250 MG TABLET.DR PO SCH ×2 (08:30→12:23)
[2023-04-26] MEDS: GABAPENTIN 300 MG CAPSULE PO SCH ×3 (08:30→17:29)
[2023-04-26] MEDS: DOCUSATE SODIUM 100 MG CAPSULE PO SCH ×2 (08:30→20:46)
[2023-04-26] MEDS: METOPROLOL TARTRATE 25 MG TABLET PO SCH ×2 (08:31→20:47)
[2023-04-26] MEDS: VANCOMYCIN IV 750 MG in IV DEXTROSE 5% 250 ML IV SCH (08:31)
[2023-04-26] MEDS: GLUCERNA SHAKE 237 ML CAN PO SCH ×2 (08:41→17:30)
[2023-04-26] MEDS: FLUCONAZOLE 200 MG/NS 100ML IV 200 MG in PREMIXED 1 EACH IV SCH (09:47)
--- NOTE | 2023-04-26 11:00 | NUR ---
PATIENT SEEN BY THE PHYSICAL THERAPY FOR THERAPEUTIC EXERCISES PATIENT ONLY WAS ABLE TO TAKE SIDE STEPS AND BACK TO BED.
[2023-04-26 11:41] VITALS: BP 92/54
[2023-04-26 17:02] VITALS: BP 119/53
[2023-04-26] MEDS: TRAZODONE 50 MG TABLET PO SCH (17:29)
--- NOTE | 2023-04-26 18:00 | NUR ---
RESTING IN BED WITH NO S/S OF HYPERGLYCEMIC REACTIONS AT THIS TIME BLOOD SUGAR IS 291 WITH REGULAR INSULIN COVERAGE PER SLIDING SCALE NOT IN DISTRESS AT THIS TIME.
[2023-04-26 20:40] VITALS: BP 110/54
--- NOTE | 2023-04-26 20:46 | NUR ---
DUE PO MEDICATION GIVEN PATIENT ABLE TO SWALLOW WHOLE PILL TOOK MEDICATION WITH WATER.
[2023-04-26] MEDS: ATORVASTATIN 20 MG TABLET PO SCH (20:47)
--- NOTE | 2023-04-26 20:55 | NUR ---
FINGERSTICK DONE AND PATIENT BLOOD SUGAR 160 GIVEN LANTUS HS SEE EMAR .
[2023-04-26] MEDS: INSULIN GLARGINE,HUM 300 UNITS/3 ML CARTRIDGE SQ SCH (21:00)
--- NOTE | 2023-04-26 21:02 | NUR ---
DUE ANTIBIOTIC GIVEN SCAN MEDICATION SEE EMAR .
--- NOTE | 2023-04-26 22:30 | NUR ---
WITH CNAS HELP TURNED AND REPOSITION PATIENT OFFLOADED BACK WITH PILLOWS BUE AND BLE ELEVATED WITH PILLOWS HEELS OFF BED .
[2023-04-27 04:00] VITALS: BP 121/52
--- NOTE | 2023-04-27 04:08 | NUR ---
VANCOMYCIN LEVEL 17.5 VANCOMYCIN GIVEN SEE EMAR .
[2023-04-27 04:40] LABS: MEAN CORPUSCULAR HEMOGLOBIN 28.8 uug (23.8-33.4); MEAN CORPUSCULAR VOLUME 85.9 fL (73.0-96.2); PLATELET COUNT (AUTO) 550 K/uL (152-348)
[2023-04-27 04:46] LABS: HEMATOCRIT 20.9 % (36.7-47.1)
--- NOTE | 2023-04-27 05:00 | NUR ---
INCONTINENT OF STOOL SOFT MODERATE IN [place] IN COLOR CHANGED SOILED LINENS AND GOWN CANCINO CARE DONE AND OFFLOADED BACK WITH PILLOW PATIENT WANTS THE ABDUCTION PILLOW OFF FOR NOW REPLACED WITH PILLOWS.
[2023-04-27 05:10] LABS: CARBON DIOXIDE 32 mmol/L (21-32); CHLORIDE 101 mmol/L (98-107); PHOSPHOROUS 3.5 mg/dL (2.5-4.9); POTASSIUM 4.6 mmol/L (3.5-5.1)
[2023-04-27 05:11] LABS: CREATININE 1.1 mg/dL (0.6-1.3); GLUCOSE 232 mg/dL (74-106); UREA NITROGEN, BLOOD 25 mg/dL (7-18)
[2023-04-27] MEDS: CEFEPIME HCL 1 G in IV DEXTROSE 5% 50 ML IV SCH ×3 (05:36→21:06)
[2023-04-27] MEDS: VANCOMYCIN IV 750 MG in IV DEXTROSE 5% 250 ML IV SCH (05:36)
[2023-04-27] MEDS: PANTOPRAZOLE SODIUM 40 MG TABLET.DR PO SCH (06:18)
[2023-04-27] MEDS: BLOOD SUGAR DIAGNOSTIC 1 EACH STRIP VI SCH ×4 (06:36→20:59)
[2023-04-27] MEDS: INSULIN REGULAR, HUMAN 300 UNIT/3 ML VIAL SQ PRN ×4 (07:45→20:52)
[2023-04-27] MEDS: DOCUSATE SODIUM 100 MG CAPSULE PO SCH ×2 (08:13→20:56)
[2023-04-27] MEDS: DIVALPROEX 250 MG TABLET.DR PO SCH ×2 (08:13→12:20)
[2023-04-27] MEDS: GABAPENTIN 300 MG CAPSULE PO SCH ×3 (08:13→16:45)
[2023-04-27] MEDS: METOPROLOL TARTRATE 25 MG TABLET PO SCH ×2 (08:14→20:56)
[2023-04-27] MEDS: GLUCERNA SHAKE 237 ML CAN PO SCH ×2 (08:14→16:46)
[2023-04-27] MEDS: FLUCONAZOLE 200 MG/NS 100ML IV 200 MG in PREMIXED 1 EACH IV SCH (09:26)
[2023-04-27] MEDS: HYDROCODONE/APAP 10-325 MG TABLET PO PRN ×2 (09:49→16:46)
--- NOTE | 2023-04-27 09:52 | NUR ---
MEDICATED WITH NORCO PER HIS REQUEST FOR INCISIONAL PAIN AND HELPFUL
--- NOTE | 2023-04-27 10:07 | NUR ---
PATIENT SEEN AND EXAMINED BY GAY HUITRON WELDER BOILERMAKER WITH NEW ORDERS AND NOTED.
[2023-04-27 11:31] VITALS: BP 143/62
--- NOTE | 2023-04-27 12:00 | NUR ---
BLOOD SUGAR AT THIS TIME IS 450 CALLED AND NOTIFIED YANG HUITRON RE STAT GLUCOSE BLOOD DRAW PER PROTOCOL AND HE STATED TO JUST COVER HIM USING THE SLIDING SCALE WITH REGULAR INSULIN ORDERED PATIENT HAS NO S/S OF HYPERGLYCEMIC REACTIONS AT THIS TIME.
--- NOTE | 2023-04-27 12:57 | NUR ---
PATIENT SIGNED THE CONSCENT FOR BLOOD TRANSFUSSION ORDERED AWAITING FOR BLOOD AVAILABILITY FROM THE LAB.
--- NOTE | 2023-04-27 15:00 | NUR ---
REMAIN ON ATB ORDERED WITH NO ADVERSE OR ALLERGIC REACTIONS AT THIS TIME INSERTED A NEW ANGIO RIGHT WRIST WITH ONE ATTEMPT KASSY WELL.
[2023-04-27 15:27] VITALS: BP 114/57
[2023-04-27] MEDS: TRAZODONE 50 MG TABLET PO SCH (17:27)
--- NOTE | 2023-04-27 17:47 | NUR ---
BLOOD IS STILL UNAVAILABLE AT THIS TIME CALL THE LAB SPOKE WITH CYNDEE STATED AWAITING FOR THE BLOOD BANK PERSON TO ARRIVE AND RELEASE THE BLOOD.WILL ENDORSE.
[2023-04-27 20:24] VITALS: BP 101/47
[2023-04-27] MEDS: INSULIN GLARGINE,HUM 300 UNITS/3 ML CARTRIDGE SQ SCH (20:51)
--- NOTE | 2023-04-27 20:51 | NUR ---
fingerstick done and follow ISS given Lantus hs insulin .
[2023-04-27] MEDS: ATORVASTATIN 20 MG TABLET PO SCH (20:56)
--- NOTE | 2023-04-27 21:00 | NUR ---
CALLED LAB /BLOOD BANK FOR THE PRBC CLS SAID HE WILL CALL ME WHEN BLOOD IS AVAILABLE.
--- NOTE | 2023-04-27 22:00 | NUR ---
started 1 unit of prbc blood verified with Another RN
[2023-04-27 22:06] VITALS: BP 107/47
[2023-04-27 22:21] VITALS: BP 109/60
--- NOTE | 2023-04-28 | NUR ---
blood transfusion in progress no blood transfusion RXN noted patient on and off awake and alert able to answer questions and not in respiratory distress continue to monitor v/s and continue with blood transfusion .
--- NOTE | 2023-04-28 01:00 | NUR ---
incontinent of stool with cnas help changed soiled linens and gown .sacral wound dressing done and follow wound care treatment cover with Mepilex. turned and reposition patient offloaded back with pillows bue and ble elevated with pillows bilateral heels off bed .
[2023-04-28 01:25] VITALS: BP 118/58
--- NOTE | 2023-04-28 02:00 | NUR ---
TOLERATED BLOOD TRANSFUSION NO RXN NOTED .
[2023-04-28] MEDS: VANCOMYCIN IV 750 MG in IV DEXTROSE 5% 250 ML IV SCH (03:58)
[2023-04-28 04:10] VITALS: BP 139/71
[2023-04-28] MEDS: CEFEPIME HCL 1 G in IV DEXTROSE 5% 50 ML IV SCH ×3 (05:33→21:55)
[2023-04-28] MEDS: PANTOPRAZOLE SODIUM 40 MG TABLET.DR PO SCH (06:06)
[2023-04-28] MEDS: BLOOD SUGAR DIAGNOSTIC 1 EACH STRIP VI SCH ×4 (06:44→21:01)
[2023-04-28 06:52] LABS: HEMATOCRIT 28.5 % (36.7-47.1); MEAN CORPUSCULAR HEMOGLOBIN 28.6 uug (23.8-33.4); MEAN CORPUSCULAR VOLUME 86.5 fL (73.0-96.2); PLATELET COUNT (AUTO) 505 K/uL (152-348)
[2023-04-28 07:20] LABS: CREATININE 1.1 mg/dL (0.6-1.3); PHOSPHOROUS 3.8 mg/dL (2.5-4.9); POTASSIUM 4.4 mmol/L (3.5-5.1)
--- NOTE | 2023-04-28 08:00 | NUR ---
PATIENT IS AWAKE ALERT AND STATED HAS PAIN WHEN ASKED SO PATIENT MEDICATED WITH NORCO AT THIS TIME ORDERED MADE COMFORTABLE.S/P BLOOD TRANSFUSSION WITH NO ADVERSE OR ALLERGIC REACTIONS AT THIS TIME.RIGHT HIP WITH DRESSING DRY AND INTACT CANCINO TO GRAVITY DRAINAGE CALL LIGHTS AND PERSOANL BELONGINGS ARE WITHIN EASY REACH WILL CONTINUE TO OBSERVE.
[2023-04-28] MEDS: INSULIN REGULAR, HUMAN 300 UNIT/3 ML VIAL SQ PRN ×4 (08:03→21:56)
[2023-04-28] MEDS: DIVALPROEX 250 MG TABLET.DR PO SCH ×2 (08:33→12:34)
[2023-04-28] MEDS: GLUCERNA SHAKE 237 ML CAN PO SCH ×2 (08:33→16:27)
[2023-04-28] MEDS: DOCUSATE SODIUM 100 MG CAPSULE PO SCH ×2 (08:33→21:48)
[2023-04-28] MEDS: GABAPENTIN 300 MG CAPSULE PO SCH ×3 (08:33→16:26)
[2023-04-28] MEDS: HYDROCODONE/APAP 10-325 MG TABLET PO PRN (08:34)
[2023-04-28] MEDS: METOPROLOL TARTRATE 25 MG TABLET PO SCH ×2 (08:35→21:52)
--- NOTE | 2023-04-28 09:30 | NUR ---
YANG HUITRON HERE SEEN PATIENT WITH NEW ORDERS AND NOTED.
[2023-04-28] MEDS: FLUCONAZOLE 200 MG/NS 100ML IV 200 MG in PREMIXED 1 EACH IV SCH (09:45)
--- NOTE | 2023-04-28 11:35 | NUR ---
DR THOMPSON HER AND I ASKED HIM IF I COULD CHANGE THE DRESSING ON HIS RIGHT HIP AND HE OKAYED SEE ORDER
[2023-04-28 11:44] VITALS: BP 113/57
[2023-04-28 16:00] VITALS: BP 115/57
--- NOTE | 2023-04-28 17:00 | NUR ---
RESTING IN BED DRESSING CHANGED TO HIS RIGHT HIP WITH DRY DRESSING ORDERED NANCY INTACT NO DRAINAGE OR REDNESS AT THIS TIME.
[2023-04-28] MEDS: TRAZODONE 50 MG TABLET PO SCH (17:32)
--- NOTE | 2023-04-28 18:00 | NUR ---
NOT IN DISTRESS ON ROOM AIR WITH ADEQUATE SATURATION AT THIS TIME WILL CONTINUE TO OBSERVE.
[2023-04-28 19:47] VITALS: BP 123/68
--- NOTE | 2023-04-28 20:30 | NUR ---
incontinent of stool with cnas help changed soiled linens and gown .sacral wound dressing done and follow wound care tx. cleaned with normal saline placed hydrogel and cover with Mepilex offloaded back with pillows bue and ble elevated with pillow .
--- NOTE | 2023-04-28 21:01 | NUR ---
fingerstick blood sugar 203 Lantus hs insulin given .
[2023-04-28] MEDS: ATORVASTATIN 20 MG TABLET PO SCH (21:48)
[2023-04-28] MEDS: INSULIN GLARGINE,HUM 300 UNITS/3 ML CARTRIDGE SQ SCH (21:55)
--- NOTE | 2023-04-28 21:55 | NUR ---
re sited H/L placed no. 20 to the right hand due antibiotic given scan medication (maxipime ) flushed H/L patent .
[2023-04-29] MEDS: VANCOMYCIN IV 750 MG in IV DEXTROSE 5% 250 ML IV SCH (01:13)
[2023-04-29 04:15] VITALS: BP 111/70
[2023-04-29] MEDS: CEFEPIME HCL 1 G in IV DEXTROSE 5% 50 ML IV SCH ×2 (06:08→14:13)
[2023-04-29] MEDS: PANTOPRAZOLE SODIUM 40 MG TABLET.DR PO SCH (06:08)
[2023-04-29] MEDS: BLOOD SUGAR DIAGNOSTIC 1 EACH STRIP VI SCH ×3 (06:34→16:58)
--- NOTE | 2023-04-29 06:34 | NUR ---
fingerstick done patient blood sugar 222 will endorsed to day shift RN due po Protonix given tolerated with water .uneventful night patient slept on and off during the night at times watching tv or at times playing with his phone .
[2023-04-29 06:39] LABS: HEMATOCRIT 28.4 % (36.7-47.1); MEAN CORPUSCULAR HEMOGLOBIN 28.7 uug (23.8-33.4); PLATELET COUNT (AUTO) 505 K/uL (152-348)
[2023-04-29 07:07] LABS: CARBON DIOXIDE 33 mmol/L (21-32); CHLORIDE 100 mmol/L (98-107); CREATININE 1.1 mg/dL (0.6-1.3); GLUCOSE 238 mg/dL (74-106); MAGNESIUM 1.6 mg/dL (1.8-2.4); PHOSPHOROUS 3.4 mg/dL (2.5-4.9); POTASSIUM 4.3 mmol/L (3.5-5.1); UREA NITROGEN, BLOOD 23 mg/dL (7-18)
[2023-04-29] MEDS: INSULIN REGULAR, HUMAN 300 UNIT/3 ML VIAL SQ PRN ×2 (08:22→17:13)
[2023-04-29] MEDS: GLUCERNA SHAKE 237 ML CAN PO SCH ×2 (08:23→16:58)
[2023-04-29] MEDS: DOCUSATE SODIUM 100 MG CAPSULE PO SCH (08:24)
[2023-04-29] MEDS: DIVALPROEX 250 MG TABLET.DR PO SCH ×2 (08:24→12:43)
[2023-04-29] MEDS: METOPROLOL TARTRATE 25 MG TABLET PO SCH (08:24)
[2023-04-29] MEDS: GABAPENTIN 300 MG CAPSULE PO SCH ×3 (08:24→17:12)
[2023-04-29] MEDS ORDERED: MAGNESIUM OXIDE 400 MG TABLET PO ONE (09:30)
[2023-04-29] MEDS ORDERED: PROTEIN SUPPLEMENT (PROSTAT) 30 ML LIQUID PO SCH (10:00)
[2023-04-29] MEDS: FLUCONAZOLE 200 MG/NS 100ML IV 200 MG in PREMIXED 1 EACH IV SCH (10:41)
[2023-04-29 11:39] VITALS: BP 128/59
--- NOTE | 2023-04-29 14:00 | NUR ---
SEEN BY [facility] PATIENT IS FOR DISCHARGE BACK TO [facility] WILL BE PICKED UP AT 1800
[2023-04-29] MEDS ORDERED: ATOR20TA PO (14:17)
[2023-04-29] MEDS ORDERED: Insulin Glargine,Hum SQ (14:17)
[2023-04-29] MEDS ORDERED: METO25TA6 PO (14:17)
[2023-04-29] MEDS ORDERED: DOCU-141 PO (14:17)
[2023-04-29] MEDS ORDERED: DOXY100T2 PO (14:17)
[2023-04-29] MEDS ORDERED: DIVA250T4 PO (14:17)
[2023-04-29] MEDS ORDERED: LEVO750T46 PO (14:17)
[2023-04-29] MEDS ORDERED: HYDR-3972 PO (14:17)
[2023-04-29 16:00] VITALS: BP 111/64
--- NOTE | 2023-04-29 16:02 | NUR ---
CALLED [facility] WHITTAKER PATIENT HAS A CANCINO CATH AND IS GOING TO ASSISTED LIVING BUT HE HAS A SACRAL WOUND AND HE STATED TO LEAVE THE CANCINO IN PATIENT IS BEING PREPPED FOR DISCHARGE WILL BE PICKED UP AT 1800 PER THE MACHINE MOLDER SQUEEZE.PATIENT AWARE
[2023-04-29] MEDS: TRAZODONE 50 MG TABLET PO SCH (17:12)
--- NOTE | 2023-04-29 17:30 | NUR ---
PATIENT HAS VALUABLES IN THE ADMINISTRATION LOCKER SO I RETRIEVED THEM AND GAVE IT TO HIM HE HAS 430 DOLLARS IN [place] IT WAS COUNTED IN HIS PRESENCE IN FRONT OF ANOTHER RN AND IT WAS SIGNED BY THE PATIENT AND WITHNESSED BY ME AND THE INTERN AWATENZIN FOR PATIENT TO BE PICKED UP BY [facility].
--- NOTE | 2023-04-29 17:45 | NUR ---
IV HEPLOCK REMOVED PATIENT IS BEING PREPPED FOR DISCHARGE WILL BE PICKED UP ABOUT 1800 TODAY.
--- NOTE | 2023-04-29 18:32 | NUR ---
NEW ORDER TO INCREASE DEPAKOTE FROM 250 BID TO [address] NICK FILM WASHER AND ENDORSE TO PATIENTS RECEIVING FACILITY.
--- NOTE | 2023-04-29 19:00 | NUR ---
PATIENT DISCHARGED PICKED UP BY [facility] IN STABLE CONDITION WITH ALL HIS PERSONAL BELONGINGS AND THE TECHS WAS ASLO NOTIFIED TO INFORM THE FACILITY OF THE INCREASE IN FREQUENCY OF DEPAKOTE AND THEY EXPRESSED UNDERSTANDING.
[2023-04-29] MEDS ORDERED: DIVALPROEX 250 MG TABLET.DR PO SCH (20:00)
== END 2023-04-29 19:00 | disposition hospice, home (50) | DRG 521 ==
LOC: ER 17:43 → TRANSITION 22:34 → TELE-TD3 04-16 15:45 → TELE3 04-16 16:13 → MEDSURG3 04-18 10:25
PROVIDERS: ADMIT Internal Medicine; ATTEND Nurse Practitioner Family
PROC: 0SRR0JA Replacement of Right Hip Joint, Femoral Surface with Synthetic Substitute, Uncemented, Open Approach (ICD-10-PCS; principal; 2023-04-17)
PROC: 0H9MXZZ Drainage of Right Foot Skin, External Approach (ICD-10-PCS; 2023-04-17)
PROC: 30233N1 Transfusion of Nonautologous Red Blood Cells into Peripheral Vein, Percutaneous Approach (ICD-10-PCS; 2023-04-27)
DX: S72.011A Unspecified intracapsular fracture of right femur, initial encounter for closed fracture (principal); I21.A1 Myocardial infarction type 2; N17.0 Acute kidney failure with tubular necrosis; J18.9 Pneumonia, unspecified organism; E44.0 Moderate protein-calorie malnutrition; B37.49 Other urogenital candidiasis; E87.1 Hypo-osmolality and hyponatremia; I47.20 Ventricular tachycardia, unspecified; W18.30XA Fall on same level, unspecified, initial encounter; Z91.81 History of falling; E11.65 Type 2 diabetes mellitus with hyperglycemia; E11.22 Type 2 diabetes mellitus with diabetic chronic kidney disease; N18.9 Chronic kidney disease, unspecified; L89.156 Pressure-induced deep tissue damage of sacral region; Z99.3 Dependence on wheelchair; M16.0 Bilateral primary osteoarthritis of hip; S90.821A Blister (nonthermal), right foot, initial encounter; X58.XXXA Exposure to other specified factors, initial encounter; Y92.092 Bedroom in other non-institutional residence as the place of occurrence of the external cause; Z87.891 Personal history of nicotine dependence; L89.326 Pressure-induced deep tissue damage of left buttock; I25.10 Atherosclerotic heart disease of native coronary artery without angina pectoris; G25.5 Other chorea; K59.00 Constipation, unspecified; M62.84 Sarcopenia; I25.2 Old myocardial infarction; E88.09 Other disorders of plasma-protein metabolism, not elsewhere classified; Z79.4 Long term (current) use of insulin; Z79.84 Long term (current) use of oral hypoglycemic drugs; Z79.899 Other long term (current) drug therapy; D63.8 Anemia in other chronic diseases classified elsewhere; Y95 Nosocomial condition
CPT/HCPCS: 36415; 70551; 71045; 72170; 73501; 73502; 83735; 84100; 84443; 84484; 85018; 85025; 85730; 86850; 86900; 86901; 86920; 87040; 93005; 93307; A4649; A4663; A6209; A6213; C1776; C9113; G0378; J0330; J0690; J0692; J0696; J1170; J1450; J1650; J1815; J2250; J2270; J2405; J3010; J3370; J3475; J3480; J3490; J7040; J7050; J7120; P9016